=== PATIENT | female | born 1940 | race Caucasian/White ===

== ENCOUNTER → 2017-05-20 | Outpatient (CLI) | payer MEDICARE, OTHER ==
[~2017-05-20] MED LIST: ALBU.083IS INH; ALBU90OI INH; ALBU90OI61 INH; ALLO100 PO; ASPI81CH PO; ASPI81EC PO; AZIT250 PO; BENZ100A PO; CIPR500 PO; DOXY100 PO; GUAI600T33 PO; HYDCHL25 PO; HYDR1TAB94 PO; Inderal40 MG PO; K-Dur20 MEQ PO; LEVFLO500 PO; LOSA50 PO; Lasix40 MG PO; MICARDIS; Norco 5-325 Ta1 EACH PO; OMEP20ER PO; PHENA200 PO; PRED10 PO; PRED20 PO; PROP10 PO; Prednisone20 MG PO; SIMV10 PO; SPIR25 PO; TRAM50 PO; TROSPIUM CHLORI20 MG PO; Ultram50 MG PO; [UNRECOGNIZED DRUG - OTHER]
== END | disposition home or self-care (01) ==
LOC: PLD 08:36 → LAB SHORT 08:36
DX: D48.5 Neoplasm of uncertain behavior of skin (principal)
CPT/HCPCS: 88305

== ENCOUNTER → 2017-05-25 | Outpatient (CLI) | payer MEDICARE, OTHER ==
[2017-05-25 14:42] LABS: BASOPHILS ABSOLUTE AUTO 0.03 K/mm3 (0.00-0.23); BASOPHILS PERCENT AUTO 0 % (0-2); EOSINOPHILS ABSOLUTE AUTO 0.15 K/mm3 (0.00-0.68); EOSINOPHILS PERCENT AUTO 2 % (0-6); Hematocrit 40.8 % (33.0-51.0); Hemoglobin 13.7 g/dL (11.5-16.0); IMMATURE GRAN ABSOLUTE AUTO 0.05 K/mm3 (0.00-0.10); IMMATURE GRAN PERCENT AUTO 1 % (0-1); LYMPHOCYTES ABSOLUTE AUTO 2.15 K/mm3 (0.84-5.20); LYMPHOCYTES PERCENT AUTO 28 % (21-46); MONOCYTES ABSOLUTE AUTO 0.69 K/mm3 (0.16-1.47); MONOCYTES PERCENT AUTO 9 % (4-13); Mean Corpuscular HGB 29.1 pg (26.0-34.0); Mean Corpuscular HGB Conc 33.6 g/dL (31.5-36.5); Mean Corpuscular Volume 87 fL (80-100); Mean Platelet Volume 11.8 fL (9.1-12.4); NEUTROPHILS ABSOLUTE AUTO 4.71 K/mm3 (1.96-9.15); NEUTROPHILS PERCENT AUTO 61 % (41-73); Platelet Count 152 K/mm3 (150-400); RDW Coefficient Variation 13.5 % (11.7-14.2); RDW Standard Deviation 42.1 fL (35.1-46.3); Red Blood Cell Count 4.71 M/mm3 (3.80-5.20); White Blood Cell Count 7.78 K/mm3 (4.00-11.30)
[2017-05-25 14:54] LABS: Alanine Aminotransfer (ALT/SGP 33 U/L (12-78); Albumin, Blood 3.5 g/dL (3.4-5.0); Albumin/Globulin Ratio 0.9 (0.8-1.8); Alk Phos 86 U/L (40-126); Anion Gap 6 mmol/L (6-16); Aspartate Aminotrans (AST/SGOT 25 U/L (12-37); Bilirubin, Total 0.7 mg/dL (0.1-1.0); Blood Urea Nitrogen 22 mg/dL (8-24); CO2, Blood 31 mmol/L (21-32); Calcium, Blood 9.5 mg/dL (8.5-10.1); Chloride, Blood 103 mmol/L (98-108); Creatinine, Blood 0.88 mg/dL (0.40-1.00); Glomerular Filtration Rate >60 (60-); Glucose, Blood 88 mg/dL (70-99); Potassium, Blood 4.3 mmol/L (3.5-5.5); Sodium, Blood 140 mmol/L (136-145); Total Protein, Blood 7.5 g/dL (6.4-8.2)
== END ==
LOC: LAB SHORT 14:38
PROVIDERS: Physician Assistant
DX: R00.2 Palpitations (principal)
CPT/HCPCS: 80053; 85025

== ENCOUNTER → 2017-06-03 | Outpatient (CLI) | payer MEDICARE, OTHER | LOC: PLD 13:40 → LAB SHORT 13:40 | DX: C44.41 Basal cell carcinoma of skin of scalp and neck (principal) | CPT/HCPCS: 88305 ==

== ENCOUNTER → 2017-07-29 | Outpatient (CLI) | payer MEDICARE, OTHER ==
[~2017-07-29] MED LIST changes: -SPIR25 PO
== END | disposition home or self-care (01) ==
LOC: LAB SHORT 11:19 → LAB EV 11:19
DX: M79.672 Pain in left foot (principal)
CPT/HCPCS: 84550

== ENCOUNTER 2018-02-03 10:49 | Day surgery (SDC) | payer MEDICARE, OTHER ==
[~2018-02-03] VITALS: Ht 157.5 cm; Wt 109.4 kg
[2018-02-03] MEDS ORDERED: SPIR25 PO (11:24)
== END 2018-02-03 13:08 | disposition home or self-care (01) ==
LOC: ORSCSDS 10:49
PROVIDERS: Internal Medicine Gastroenterology
PROC: 0DB68ZX Excision of Stomach, Via Natural or Artificial Opening Endoscopic, Diagnostic (ICD-10-PCS; principal; 2018-02-03 12:00)
PROC: 0DB58ZX Excision of Esophagus, Via Natural or Artificial Opening Endoscopic, Diagnostic (ICD-10-PCS; principal; 2018-02-03 12:00)
PROC: 0DBH8ZX Excision of Cecum, Via Natural or Artificial Opening Endoscopic, Diagnostic (ICD-10-PCS; principal; 2018-02-03 12:00)
DX: K21.9 Gastro-esophageal reflux disease without esophagitis (principal); K29.70 Gastritis, unspecified, without bleeding; K31.7 Polyp of stomach and duodenum; Z12.11 Encounter for screening for malignant neoplasm of colon; Z86.010 Personal history of colon polyps; D12.0 Benign neoplasm of cecum; K57.30 Diverticulosis of large intestine without perforation or abscess without bleeding; K64.8 Other hemorrhoids; J44.9 Chronic obstructive pulmonary disease, unspecified; G47.33 Obstructive sleep apnea (adult) (pediatric); Z87.891 Personal history of nicotine dependence; E66.01 Morbid (severe) obesity due to excess calories; Z68.41 Body mass index [BMI] 40.0-44.9, adult; I12.9 Hypertensive chronic kidney disease with stage 1 through stage 4 chronic kidney disease, or unspecified chronic kidney disease; N18.9 Chronic kidney disease, unspecified; Z79.899 Other long term (current) drug therapy; Z79.82 Long term (current) use of aspirin
CPT/HCPCS: 88305; 88342; J2250; J7120

== ENCOUNTER → 2018-05-08 | Outpatient (CLI) | payer MEDICARE, OTHER ==
[~2018-05-08] MED LIST changes: +SPIR25 PO
== END ==
LOC: LAB SHORT 17:21 → LAB EV 17:21
DX: N39.0 Urinary tract infection, site not specified (principal)
CPT/HCPCS: 87077; 87086; 87186

== ENCOUNTER → 2018-07-12 | Outpatient (CLI) | payer MEDICARE, OTHER | LOC: LAB SHORT 19:16 → LAB EV 19:16 | DX: N39.0 Urinary tract infection, site not specified (principal) | CPT/HCPCS: 87077; 87086; 87186 ==

== ENCOUNTER 2019-02-04 13:03 | Day surgery (SDC) | payer MEDICARE, OTHER ==
[~2019-02-04] VITALS: Ht 157.5 cm; Wt 109.8 kg
[~2019-02-04 13:03] MED LIST changes: +AMLO10 PO; +AMLO5 PO; +ASPI325 PO; +COLLAGEN; +FURO40 PO; +Flonase 0.05% N16 GM; +LEVO-T100 MCG PO; +LEVSOD100 PO; +OMEPRAZOLE20 MG PO; +PROP80ER; +TERB250 PO; +VITAMIN D35000 UNIT PO; +VITAMIN D5000 UNIT PO; +Zantac150 MG PO
[2019-02-04] MEDS ORDERED: ACET325 PO (13:57)
== END 2019-02-04 16:20 | disposition home or self-care (01) ==
LOC: ORSCSDS 13:03
PROVIDERS: Podiatrist Foot & Ankle Surgery
PROC: 0QBP0ZZ Excision of Left Metatarsal, Open Approach (ICD-10-PCS; principal; 2019-02-04 14:30)
PROC: 0QBM0ZZ Excision of Left Tarsal, Open Approach (ICD-10-PCS; principal; 2019-02-04 14:30)
DX: M12.872 Other specific arthropathies, not elsewhere classified, left ankle and foot (principal); Z95.0 Presence of cardiac pacemaker; G47.33 Obstructive sleep apnea (adult) (pediatric); E03.9 Hypothyroidism, unspecified; E66.01 Morbid (severe) obesity due to excess calories; Z68.41 Body mass index [BMI] 40.0-44.9, adult; I10 Essential (primary) hypertension; J44.9 Chronic obstructive pulmonary disease, unspecified; E78.5 Hyperlipidemia, unspecified; Z79.899 Other long term (current) drug therapy; Z79.82 Long term (current) use of aspirin
CPT/HCPCS: J0171; J0690; J2250; J2704; J3010; J7120

== ENCOUNTER → 2019-03-25 | Outpatient (CLI) | payer MEDICARE, OTHER ==
[~2019-03-25] MED LIST changes: +ACET325 PO
== END | disposition home or self-care (01) ==
LOC: LAB SHORT 16:21 → LAB EV 16:21
DX: N39.0 Urinary tract infection, site not specified (principal)
CPT/HCPCS: 87086

== ENCOUNTER 2019-04-08 17:53 | Emergency (ER) | payer MEDICARE, OTHER ==
[~2019-04-08] VITALS: Ht 157.5 cm; Wt 109.8 kg
[~2019-04-08 17:53] MED LIST changes: -PROP80ER; +PROP80ER PO
[2019-04-08 18:48] LABS: BASOPHILS ABSOLUTE AUTO 0.02 K/mm3 (0.00-0.23); BASOPHILS PERCENT AUTO 0 % (0-2); EOSINOPHILS ABSOLUTE AUTO 0.24 K/mm3 (0.00-0.68); EOSINOPHILS PERCENT AUTO 3 % (0-6); Hematocrit 39.9 % (33.0-51.0); IMMATURE GRAN ABSOLUTE AUTO 0.04 K/mm3 (0.00-0.10); IMMATURE GRAN PERCENT AUTO 0 % (0-1); LYMPHOCYTES ABSOLUTE AUTO 2.05 K/mm3 (0.84-5.20); LYMPHOCYTES PERCENT AUTO 23 % (21-46); MONOCYTES ABSOLUTE AUTO 0.77 K/mm3 (0.16-1.47); MONOCYTES PERCENT AUTO 9 % (4-13); Mean Corpuscular HGB 28.4 pg (26.0-34.0); Mean Corpuscular HGB Conc 32.6 g/dL (31.5-36.5); Mean Corpuscular Volume 87 fL (80-100); Mean Platelet Volume 11.7 fL (9.1-12.4); NEUTROPHILS ABSOLUTE AUTO 5.85 K/mm3 (1.96-9.15); NEUTROPHILS PERCENT AUTO 65 % (41-73); Platelet Count 177 K/mm3 (150-400); RDW Coefficient Variation 13.7 % (11.7-14.2); RDW Standard Deviation 43.8 fL (35.1-46.3); Red Blood Cell Count 4.57 M/mm3 (3.80-5.20); White Blood Cell Count 8.97 K/mm3 (4.00-11.30)
[2019-04-08 19:13] LABS: Alanine Aminotransfer (ALT/SGP 30 U/L (12-78); Albumin, Blood 3.6 g/dL (3.4-5.0); Albumin/Globulin Ratio 0.8 (0.8-1.8); Alk Phos 95 U/L (50-136); Anion Gap 4 mmol/L (6-16); Aspartate Aminotrans (AST/SGOT 21 U/L (12-37); Bilirubin, Total 0.5 mg/dL (0.1-1.0); Blood Urea Nitrogen 27 mg/dL (8-24); Bun/Creatinine Ratio 36.2 (12.0-20.0); CO2, Blood 29 mmol/L (21-32); Calcium, Blood 9.6 mg/dL (8.5-10.1); Chloride, Blood 104 mmol/L (98-108); Creatinine, Blood 0.75 mg/dL (0.40-1.00); Globulin, Blood 4.3 g/dL (2.2-4.0); Glomerular Filtration Rate >60 (60-); Glucose, Blood 81 mg/dL (70-99); Sodium, Blood 137 mmol/L (136-145); Total Protein, Blood 7.9 g/dL (6.4-8.2)
[2019-04-08 20:12] LABS: Source, Urine Clean Catch
[2019-04-08 20:15] LABS: Bilirubin, Urine Neg (Neg); Blood, Urine Neg (Neg); Glucose Qualitative, Urine Neg (Neg); Ketones, Urine Neg (Neg); Leukocyte Esterase, Urine 3+ (Neg); Nitrite, Urine Neg (Neg); Protein, Urine Neg (Neg); Urobilinogen, Urine NORM (Normal)
[2019-04-08 20:17] LABS: Appearance, Urine Clear (Clear); Color, Urine Yellow (P-Yellow)
[2019-04-08 20:21] LABS: Bacteria Rare /hpf; Red Blood Cells, Urine Not Seen /hpf (0-2); Squamous Epithelial Cells Few /hpf (Few); White Blood Cells, Urine 50-100 /hpf (0-5)
[2019-04-08] MEDS ORDERED: Norco 5-325 Ta1 EACH PO (21:12)
[2019-04-08] MEDS ORDERED: CEPH500 PO (21:12)
[2019-04-08] MEDS ORDERED: Bactrim Ds Tab1 EACH PO (21:12)
== END 2019-04-08 21:46 | disposition home or self-care (01) ==
LOC: ER 17:53
PROVIDERS: Physician Assistant
DX: N30.00 Acute cystitis without hematuria (principal); N75.0 Cyst of Bartholin's gland; J44.9 Chronic obstructive pulmonary disease, unspecified; M10.9 Gout, unspecified; I10 Essential (primary) hypertension; Z88.6 Allergy status to analgesic agent; Z88.5 Allergy status to narcotic agent; Z91.040 Latex allergy status; Z79.82 Long term (current) use of aspirin
CPT/HCPCS: 74176; 80053; 81001; 83690; 85025; 87077; 87086; 87186; 99284-25; A9270-GY

== ENCOUNTER → 2019-04-12 | Outpatient (CLI) | payer MEDICARE, OTHER ==
[~2019-04-12] MED LIST changes: +Bactrim Ds Tab1 EACH PO; +CEPH500 PO
== END | disposition home or self-care (01) ==
LOC: LAB EV 18:25 → LAB SHORT 18:25
DX: N39.0 Urinary tract infection, site not specified (principal)
CPT/HCPCS: 87086

== ENCOUNTER → 2020-06-12 | Outpatient (CLI) | payer MEDICARE, OTHER ==
[~2020-06-12] MED LIST changes: +FOSAMAX70 MG PO
== END | disposition home or self-care (01) ==
LOC: LAB SHORT 14:15 → LAB 14:15
DX: L28.2 Other prurigo (principal)
CPT/HCPCS: 87070; 87106; 87205

== ENCOUNTER 2020-07-02 16:01 | Emergency (ER) | payer MEDICARE, OTHER ==
[~2020-07-02] VITALS: Ht 157.5 cm; Wt 107.5 kg
[~2020-07-02 16:01] MED LIST changes: -FOSAMAX70 MG PO
[2020-07-02 17:30] LABS: BASOPHILS ABSOLUTE AUTO 0.03 K/mm3 (0.00-0.23); BASOPHILS PERCENT AUTO 0 % (0-2); EOSINOPHILS ABSOLUTE AUTO 0.44 K/mm3 (0.00-0.68); EOSINOPHILS PERCENT AUTO 6 % (0-6); Hematocrit 42.8 % (33.0-51.0); IMMATURE GRAN ABSOLUTE AUTO 0.05 K/mm3 (0.00-0.10); IMMATURE GRAN PERCENT AUTO 1 % (0-1); LYMPHOCYTES ABSOLUTE AUTO 1.95 K/mm3 (0.84-5.20); LYMPHOCYTES PERCENT AUTO 26 % (21-46); MONOCYTES ABSOLUTE AUTO 0.51 K/mm3 (0.16-1.47); MONOCYTES PERCENT AUTO 7 % (4-13); Mean Corpuscular HGB 27.9 pg (26.0-34.0); Mean Corpuscular HGB Conc 32.7 g/dL (31.5-36.5); Mean Corpuscular Volume 85 fL (80-100); Mean Platelet Volume 11.2 fL (9.1-12.4); NEUTROPHILS PERCENT AUTO 60 % (41-73); Platelet Count 173 K/mm3 (150-400); RDW Standard Deviation 43.1 fL (35.1-46.3); Red Blood Cell Count 5.02 M/mm3 (3.80-5.20); White Blood Cell Count 7.48 K/mm3 (4.00-11.30)
[2020-07-02 17:58] LABS: Alanine Aminotransfer (ALT/SGP 23 U/L (12-78); Albumin, Blood 3.7 g/dL (3.4-5.0); Albumin/Globulin Ratio 0.9 (0.8-1.8); Alk Phos 86 U/L (50-136); Anion Gap 4 mmol/L (6-16); Aspartate Aminotrans (AST/SGOT 20 U/L (12-37); Bilirubin, Total 1.1 mg/dL (0.1-1.0); Blood Urea Nitrogen 23 mg/dL (8-24); CO2, Blood 29 mmol/L (21-32); Calcium, Blood 9.1 mg/dL (8.5-10.1); Chloride, Blood 104 mmol/L (98-108); Creatinine, Blood 0.82 mg/dL (0.40-1.00); Globulin, Blood 4.1 g/dL (2.2-4.0); Glomerular Filtration Rate >60 (60-); Glucose, Blood 98 mg/dL (70-99); Potassium, Blood 4.4 mmol/L (3.5-5.5); Sodium, Blood 137 mmol/L (136-145); Total Protein, Blood 7.8 g/dL (6.4-8.2)
[2020-07-02 19:54] LABS: Source, Urine Clean Catch
[2020-07-02 20:00] LABS: Bilirubin, Urine Neg (Neg); Blood, Urine Neg (Neg); Glucose Qualitative, Urine Neg (Neg); Ketones, Urine Neg (Neg); Leukocyte Esterase, Urine 1+ (Neg); Nitrite, Urine Neg (Neg); Protein, Urine Neg (Neg); Specific Gravity, Urine 1.015 (1.003-1.022); Urobilinogen, Urine NORM (Normal)
[2020-07-02 20:13] LABS: U Amphetamine Screen Not Detected; U Barbituate Screen Not Detected; U Benzodiazapine Screen Not Detected; U Buprenorphine Screen Not Detected; U Cannabinoids Screen Not Detected; U Cocaine Screen Not Detected; U Methadone Screen Not Detected; U Methamphetamine Screen Not Detected; U Opiates Screen Not Detected; U Oxycodone Screen Not Detected; U Phencyclidine Screen Not Detected; U Propoxyphene Screen Not Detected
[2020-07-02 20:20] LABS: Appearance, Urine Clear (Clear); Color, Urine Yellow (P-Yellow)
[2020-07-02 20:27] LABS: Bacteria Many /hpf; Red Blood Cells, Urine 0-2 /hpf (0-2); Squamous Epithelial Cells Mod /hpf (Few)
[2020-07-02] MEDS ORDERED: FOSAMAX70 MG PO (20:54)
[2020-07-03 00:06] LABS: CPK Creatine Kinase 62 U/L (26-193)
[2020-07-03 00:07] LABS: Troponin I <0.015 ng/mL (0.000-0.040)
== END 2020-07-03 00:35 | disposition home or self-care (01) ==
LOC: ER 16:01
PROVIDERS: Emergency Medicine; Physician Assistant
DX: M79.10 Myalgia, unspecified site (principal); R53.1 Weakness; Z88.5 Allergy status to narcotic agent; Z91.040 Latex allergy status; Z79.82 Long term (current) use of aspirin; Z79.899 Other long term (current) drug therapy; Z87.891 Personal history of nicotine dependence; M79.605 Pain in left leg; M79.604 Pain in right leg
CPT/HCPCS: 36415; 70450; 80053; 81001; 82550; 84484; 85025; 87086; 93970; 99285-25

== ENCOUNTER → 2020-09-14 | Outpatient (CLI) | payer MEDICARE, OTHER ==
[~2020-09-14] MED LIST changes: +FOSAMAX70 MG PO
== END | disposition home or self-care (01) ==
LOC: LAB SHORT 13:58 → LAB 13:58
DX: N90.89 Other specified noninflammatory disorders of vulva and perineum (principal)
CPT/HCPCS: 88304

== ENCOUNTER → 2020-09-29 | Outpatient (CLI) | payer MEDICARE, OTHER | LOC: LAB 15:09 → LAB SHORT 15:09 | DX: N39.0 Urinary tract infection, site not specified (principal); Z88.6 Allergy status to analgesic agent; Z88.5 Allergy status to narcotic agent; Z91.040 Latex allergy status | CPT/HCPCS: 87077; 87086; 87186 ==

== ENCOUNTER → 2020-11-21 | Outpatient (CLI) | payer MEDICARE | END | disposition home or self-care (01) | LOC: LAB SHORT 10:46 | DX: L57.0 Actinic keratosis (principal); L72.0 Epidermal cyst | CPT/HCPCS: 88304; 88305 ==

== ENCOUNTER → 2021-04-18 | Outpatient (CLI) | payer MEDICARE, OTHER | END | disposition home or self-care (01) | LOC: LAB SHORT 18:42 | DX: N39.0 Urinary tract infection, site not specified (principal) | CPT/HCPCS: 87077; 87086; 87186 ==

== ENCOUNTER → 2021-08-16 | Outpatient (CLI) | payer MEDICARE, OTHER ==
[2021-08-16 19:12] LABS: BASOPHILS ABSOLUTE AUTO 0.01 K/mm3 (0.00-0.23); BASOPHILS PERCENT AUTO 0 % (0-2); EOSINOPHILS ABSOLUTE AUTO 0.26 K/mm3 (0.00-0.68); EOSINOPHILS PERCENT AUTO 4 % (0-6); Hematocrit 39.8 % (33.0-51.0); Hemoglobin 13.3 g/dL (11.5-16.0); IMMATURE GRAN ABSOLUTE AUTO 0.02 K/mm3 (0.00-0.10); IMMATURE GRAN PERCENT AUTO 0 % (0-1); LYMPHOCYTES ABSOLUTE AUTO 1.96 K/mm3 (0.84-5.20); LYMPHOCYTES PERCENT AUTO 31 % (21-46); MONOCYTES ABSOLUTE AUTO 0.42 K/mm3 (0.16-1.47); MONOCYTES PERCENT AUTO 7 % (4-13); Mean Corpuscular HGB 28.7 pg (26.0-34.0); Mean Corpuscular HGB Conc 33.4 g/dL (31.5-36.5); Mean Corpuscular Volume 86 fL (80-100); Mean Platelet Volume 11.5 fL (9.1-12.4); NEUTROPHILS ABSOLUTE AUTO 3.71 K/mm3 (1.96-9.15); NEUTROPHILS PERCENT AUTO 58 % (41-73); Platelet Count 153 K/mm3 (150-400); RDW Standard Deviation 43.2 fL (35.1-46.3); Red Blood Cell Count 4.64 M/mm3 (3.80-5.20); White Blood Cell Count 6.38 K/mm3 (4.00-11.30)
[2021-08-16 19:29] LABS: Bun/Creatinine Ratio 23.7 (12.0-20.0); Calcium, Blood 9.3 mg/dL (8.5-10.1); Creatinine, Blood 0.97 mg/dL (0.40-1.00); Potassium, Blood 3.7 mmol/L (3.5-5.5); Thyroid Stimulating Hormone 4.183 uIU/mL (0.360-4.800)
== END | disposition home or self-care (01) ==
LOC: LAB SHORT 19:07
PROVIDERS: Physician Assistant Surgical
DX: R53.83 Other fatigue (principal)
CPT/HCPCS: 80048; 84443; 85025

== ENCOUNTER → 2021-12-03 | Outpatient (CLI) | payer MEDICARE, OTHER | END | disposition home or self-care (01) | LOC: LAB SHORT 15:08 → PLD 15:08 | DX: D48.5 Neoplasm of uncertain behavior of skin (principal) | CPT/HCPCS: 88305 ==

== ENCOUNTER → 2024-06-28 | Outpatient (CLI) | payer MEDICARE | END | disposition home or self-care (01) | LOC: LAB SHORT 18:14 → LAB 18:14 | DX: N39.0 Urinary tract infection, site not specified (principal) | CPT/HCPCS: 87077; 87086; 87186 ==

== ENCOUNTER → 2025-02-18 | Outpatient (CLI) | payer MEDICARE | LOC: LAB 16:48 → LAB SHORT 16:48 | DX: N39.0 Urinary tract infection, site not specified (principal); R31.9 Hematuria, unspecified | CPT/HCPCS: 87077; 87086; 87186 ==

== ENCOUNTER 2025-03-07 17:39 | Emergency (ER) | payer MEDICARE | END 2025-03-07 23:52 | disposition home or self-care (01) | LOC: ER 17:39 | DX: S06.0X0A Concussion without loss of consciousness, initial encounter (principal); M54.2 Cervicalgia; L03.116 Cellulitis of left lower limb; T50.2X6A Underdosing of carbonic-anhydrase inhibitors, benzothiadiazides and other diuretics, initial encounter; I10 Essential (primary) hypertension; J44.9 Chronic obstructive pulmonary disease, unspecified; I48.91 Unspecified atrial fibrillation; Z91.148 Patient's other noncompliance with medication regimen for other reason; Z95.0 Presence of cardiac pacemaker; Z87.891 Personal history of nicotine dependence; Z88.5 Allergy status to narcotic agent; Z91.040 Latex allergy status; Z79.82 Long term (current) use of aspirin; Z79.01 Long term (current) use of anticoagulants; Z79.890 Hormone replacement therapy; Z79.899 Other long term (current) drug therapy; W19.XXXA Unspecified fall, initial encounter ==

== ENCOUNTER 2025-03-27 14:35 | Inpatient (IN) | payer MEDICARE ==
[~2025-03-27] VITALS: Ht 162.6 cm; Wt 103.0 kg
[~2025-03-27 14:35] MED LIST changes: -AMLO10 PO
[2025-03-27 15:43] LABS: BASOPHILS ABSOLUTE AUTO 0.04 K/mm3 (0.00-0.23); BASOPHILS PERCENT AUTO 0 % (0-2); EOSINOPHILS ABSOLUTE AUTO 0.00 K/mm3 (0.00-0.68); EOSINOPHILS PERCENT AUTO 0 % (0-6); Hematocrit 43.9 % (33.0-51.0); Hemoglobin 14.5 g/dL (11.5-16.0); IMMATURE GRAN ABSOLUTE AUTO 0.10 K/mm3 (0.00-0.10); IMMATURE GRAN PERCENT AUTO 1 % (0-1); LYMPHOCYTES ABSOLUTE AUTO 1.21 K/mm3 (0.84-5.20); LYMPHOCYTES PERCENT AUTO 7 % (21-46); MONOCYTES ABSOLUTE AUTO 1.07 K/mm3 (0.16-1.47); MONOCYTES PERCENT AUTO 7 % (4-13); Mean Corpuscular HGB Conc 33.0 g/dL (31.5-36.5); Mean Corpuscular Volume 92 fL (80-100); NEUTROPHILS ABSOLUTE AUTO 14.02 K/mm3 (1.96-9.15); NEUTROPHILS PERCENT AUTO 85 % (41-73); NRBC ABSOLUTE 0.00 K/mm3 (0.00-0.02); NRBC Auto 0.0 /100 WBC (0.0-0.2); Platelet Count 132 K/mm3 (150-400); RDW Coefficient Variation 14.6 % (11.7-14.2); RDW Standard Deviation 49.2 fL (35.1-46.3)
[2025-03-27 16:25] LABS: Alanine Aminotransfer (ALT/SGP 36.0 U/L (12-78); Albumin, Blood 3.0 g/dL (3.4-5.0); Albumin/Globulin Ratio 0.7 (0.8-1.8); Anion Gap 10.0 mmol/L (3-11); Aspartate Aminotrans (AST/SGOT 50.0 U/L (12-37); Bilirubin, Total 2.6 mg/dL (0.1-1.0); Blood Urea Nitrogen 25.0 mg/dL (8-24); CO2, Blood 27.0 mmol/L (21-32); Calcium, Blood 9.6 mg/dL (8.5-10.1); Chloride, Blood 99.0 mmol/L (98-108); Creatinine, Blood 1.06 mg/dL (0.40-1.00); Globulin, Blood 4.2 g/dL (2.2-4.0); Glucose, Blood 104.0 mg/dL (70-99); Potassium, Blood 4.5 mmol/L (3.5-5.5); Sodium, Blood 131.0 mmol/L (136-145); Total Protein, Blood 7.2 g/dL (6.4-8.2)
[2025-03-27] MEDS ORDERED: NYSTOP15 GM TOP (17:03)
[2025-03-27] MEDS ORDERED: ISOSORBIDE MONO30 MG PO (17:03)
[2025-03-27] MEDS ORDERED: ELIQUIS5 M3 PO (17:03)
[2025-03-27] MEDS ORDERED: NS 1,000 ML IV SCH ×2 (17:15→18:25)
[2025-03-27] MEDS ORDERED: CefTRIAXone Sodium 2,000 MG in NS 100 ML IV ONE (17:20)
[2025-03-27] MEDS ORDERED: FentaNYL Citrate 50 MCG/ML 2 ML Injection IV ONE ×2 (17:30→22:30)
[2025-03-27] MEDS ORDERED: Vancomycin (Pharmacy Consult) IV PRN (17:45)
[2025-03-27] MEDS ORDERED: Ondansetron HCl 2 MG / ML 2ML Vial IV PRN (18:25)
[2025-03-27] MEDS ORDERED: HYDROcodone 5-APAP 325 TAB PO PRN (18:25)
[2025-03-27] MEDS ORDERED: FLU VACC TS2025(65UP)/MF59C/PF 45 MCG/0.5 ML SYRINGE IM SCH (18:35)
[2025-03-27] MEDS ORDERED: Metoprolol Tartrate 1 MG/ML 5 ML VIAL IV PRN (18:50)
[2025-03-27] MEDS ORDERED: Vancomycin (Pharmacy Consult) IV SCH (19:00)
[2025-03-27 20:43] VITALS: BP 120/65
[2025-03-27] MEDS ORDERED: Lactobacil 2-S.Thermo-Bifido 1 1 Cap PO SCH (21:00)
[2025-03-27] MEDS ORDERED: Morphine Sulfate 4 MG/1 ML Injection IV PRN (22:30)
[2025-03-27 23:30] VITALS: BP 116/66
--- NOTE | 2025-03-27 23:44 | NUR ---
PROVIDER CONTACTED PT C/O CHEST PAIN REPORTED "WORST PAIN I HAVE EVER HAD" POINTED TO LEFT BREAST TO LATERAL 4-5 RIBS NON RADIATING,DENIES BACK AND JAW PAIN, PT GIVEN METROPOLOL APIXIBAN AND NORCO EVENING MEDICATIONS PRIOR,PROVIDER ORDERED TROPONIN LABS Q1HR X2 , FENTYNAL 50 MCG X1, EKG SHOWED AFIB @103, PT STATES "PAIN COMES AND GOES", VSS, PT PLACED ON TELE, TROPONIN LAB 13 , CHART REVIEW SHOWS PT AFIB W RVR IN ER PRIOR TO ADMISSION.
[2025-03-28] VITALS (7 sets, daily range): BP systolic 103–143; BP diastolic 60–96
--- NOTE | 2025-03-28 02:04 | NUR ---
CALLED HOSPITALIST AND RECEIVED ORDERS TO SET UP CPAP FOR PT USING HOSPITAL EQUIPMENT.
[2025-03-28 05:48] LABS: BASOPHILS ABSOLUTE AUTO 0.02 K/mm3 (0.00-0.23); BASOPHILS PERCENT AUTO 0 % (0-2); EOSINOPHILS ABSOLUTE AUTO 0.02 K/mm3 (0.00-0.68); EOSINOPHILS PERCENT AUTO 0 % (0-6); Hematocrit 39.1 % (33.0-51.0); Hemoglobin 12.9 g/dL (11.5-16.0); IMMATURE GRAN ABSOLUTE AUTO 0.04 K/mm3 (0.00-0.10); IMMATURE GRAN PERCENT AUTO 0 % (0-1); LYMPHOCYTES ABSOLUTE AUTO 0.84 K/mm3 (0.84-5.20); LYMPHOCYTES PERCENT AUTO 9 % (21-46); MONOCYTES ABSOLUTE AUTO 0.69 K/mm3 (0.16-1.47); MONOCYTES PERCENT AUTO 8 % (4-13); Mean Corpuscular HGB Conc 33.0 g/dL (31.5-36.5); Mean Corpuscular Volume 91 fL (80-100); NEUTROPHILS ABSOLUTE AUTO 7.35 K/mm3 (1.96-9.15); NEUTROPHILS PERCENT AUTO 82 % (41-73); NRBC ABSOLUTE 0.00 K/mm3 (0.00-0.02); NRBC Auto 0.0 /100 WBC (0.0-0.2); Platelet Count 115 K/mm3 (150-400); RDW Coefficient Variation 14.6 % (11.7-14.2); RDW Standard Deviation 49.1 fL (35.1-46.3)
[2025-03-28 06:07] LABS: Anion Gap 8.0 mmol/L (3-11); Blood Urea Nitrogen 23.0 mg/dL (8-24); CO2, Blood 27.0 mmol/L (21-32); Calcium, Blood 8.7 mg/dL (8.5-10.1); Chloride, Blood 106.0 mmol/L (98-108); Creatinine, Blood 0.85 mg/dL (0.40-1.00); Glucose, Blood 119.0 mg/dL (70-99); Potassium, Blood 3.9 mmol/L (3.5-5.5); Sodium, Blood 137.0 mmol/L (136-145)
--- NOTE | 2025-03-28 06:38 | NUR ---
SHIFT SUMMARY PT ARRIVED AT APPROXIMATELY 2039 TO ROOM 327. SHE WAS ORIENTED TO HER ROOM AND WAS ABLE TO TRANSFER TO HER BED WITH 1-2 PERSON ASSIST. SHE IS A&OX4. ABLE TO MAKE NEEDS KNOWN. THERE IS REDNESS WITH RED SPOTS TO LLL WITH OUTLINE THAT APPEARS TO BE GETTING SMALLER AFTER FIRST DOSE OF VANCOMYCIN. PT TOLERATED VANCOMYCIN INFUSION WELL W/O COMPLAINT. SHE HAD A RUN OF AFIB W RVR WITH CHEST PAIN. HOSPITALIST WAS CALLED AND DUE TO PT ALLERGY TO MORPHINE, WAS GIVEN FENTANYL AND AFIB W/RVR AND S/S RESOLVED. TROPONIN WAS DRAWN PER ORDERS AND WITHOUT SIGNIFICANCE. PT WAS SET UP WITH RT AND A CPAP MACHINE AND WAS ABLE TO REST COMFORTABLY. HER IS AT BEDSIDE AND HAS STAYED THE NIGHT WITH HER. SHE HAS HAD INTERMITTENT PAIN THAT IS SHOOTING DOWN HER LLL AND WAS MEDICATED PER EMAR. CURRENTLY PT IS SITTING UP IN BED AT LOWEST POSITION WITH CALL LIGHT WITHIN REACH DRINKING COFFEE WITH HER .
[2025-03-28] MEDS ORDERED: Enoxaparin 40 MG/0.4 ML SYR SC SCH (09:00)
[2025-03-28] MEDS ORDERED: VITAMIN D31000 UNI1 PO (14:53)
[2025-03-28] MEDS ORDERED: CefTRIAXone Sodium 1,000 MG in NS 100 ML IV SCH (18:00)
--- NOTE | 2025-03-28 19:43 | NUR ---
SHIFT SUMMARY PT A&OX4. PT ADMITTED DUE TO LLL CELLULITIS. PT REPORTS DECREASE IN SWELLING AND REDNESS FROM PREVIOUS MARKED LEG. PT REPORTS PAIN, PAIN MANAGED PER EMAR. PT REPORTS CHRONIC SOB SOMETIMES, PT HAS CONT PULSE OX ON, SPO2 IS 96%. PT REPORTS PACEMAKER. NIGHT RN REPORTED "LAST NIGHT PT HAD CHEST PAIN," THIS RN ASKED PT IF PT HAS CHEST PAIN. PT REPORTED "HAVE SHARP PAIN 3-4 TIMES IN CHEST AREA BUT MAY BE DUE TO MUSCLE STRAIN." DR. PHILLIPS NOTIFIED ON CHEST PAIN. PT ON TELE, TELE REPORTS PT IN AFIB. NO TELE REPORTS NOTED TODAY. PT HAS MIXED INC. ATTENDS IN PLACE AND CHANGED PRN. THIS RN COMPLETED MED REC. PASSED TO NIGHT RN PT REPORTS "DONT HAVE METOPROLOL." MED ON EMAR, DURING BEDSIDE REPORT PT REPORTED, " AMLODIPINE I DONT TAKE ALWAYS DUE TO MAKES MY LEGS SWELL, I DONT ALWAYS TAKE MY LASIX." I TAKE PT IS A SBA W FWW. PT REPORTS HX OF NEUROPATHY. PT GOT IV ANTIBIOTIC. PT IN BED, BED IN LOWEST POSITION, LOCKED, CALL LIGHT IN REACH. PT GOT NEW IV TODAY DUE TO IV INFILTRATED. PT REPORTED "WANTED IT IN SAME ARM."
--- NOTE | 2025-03-28 23:06 | NUR ---
HOME MED - PROPANOLOL DISCONTINUED PATIENT REPORTS THAT SHE DISCONTINUED HER HOME PROPANOLOL. SHE REPORTS THAT HER STRIKE PLATE ATTACHER ASKED HER TO STOP TAKING IT AT HOME DUE TO BRADYCARDIA.
[2025-03-28] MEDS ORDERED: Miconazole Nitrate 2% 85 GM PWD TOP SCH (23:58)
--- NOTE | 2025-03-29 04:43 | NUR ---
SHIFT SUMMARY ADMITTED FOR LLE CELLULITIS/SEPSIS. FULL CODE. IV ANTIB RX ARE SCHEDULED. SHE IS ON ELIQUIS. TELEMETRY: AFIB @ 77 BPM, PACED W/PVC'S. NS INFUSING ORDERED. SHE IS A&O X4, 1 ASSIST W/FWW. ON RA. REGULAR DIET. CONTINUOUS PULSE OX IS MONITORING. CPAP @ HS. NEW POWERGLIDE IN PLACE THIS SHIFT. ANTIFUNGAL POWDER ORDERED FOR YEASTY RASH IN CREASES. SHE DOES REPORT THAT SHE STOPPED HER HOME PROPANOLOL SOMETIME AFTER SHE LAST PICKED IT UP IN NOVEMBER DUE TO EPISODES OF BRADYCARDIA. SHE DOES ALSO HAVE A HX OF CHF.
[2025-03-29 06:13] LABS: BASOPHILS ABSOLUTE AUTO 0.01 K/mm3 (0.00-0.23); BASOPHILS PERCENT AUTO 0 % (0-2); EOSINOPHILS ABSOLUTE AUTO 0.03 K/mm3 (0.00-0.68); EOSINOPHILS PERCENT AUTO 1 % (0-6); Hematocrit 37.1 % (33.0-51.0); Hemoglobin 11.8 g/dL (11.5-16.0); IMMATURE GRAN ABSOLUTE AUTO 0.02 K/mm3 (0.00-0.10); IMMATURE GRAN PERCENT AUTO 0 % (0-1); LYMPHOCYTES ABSOLUTE AUTO 0.81 K/mm3 (0.84-5.20); LYMPHOCYTES PERCENT AUTO 15 % (21-46); MONOCYTES ABSOLUTE AUTO 0.37 K/mm3 (0.16-1.47); MONOCYTES PERCENT AUTO 7 % (4-13); Mean Corpuscular HGB Conc 31.8 g/dL (31.5-36.5); Mean Corpuscular Volume 92 fL (80-100); NEUTROPHILS ABSOLUTE AUTO 4.04 K/mm3 (1.96-9.15); NEUTROPHILS PERCENT AUTO 77 % (41-73); NRBC ABSOLUTE 0.00 K/mm3 (0.00-0.02); NRBC Auto 0.0 /100 WBC (0.0-0.2); Platelet Count 109 K/mm3 (150-400); RDW Coefficient Variation 14.4 % (11.7-14.2); RDW Standard Deviation 48.6 fL (35.1-46.3)
[2025-03-29 06:32] LABS: Anion Gap 6.0 mmol/L (3-11); Blood Urea Nitrogen 19.0 mg/dL (8-24); CO2, Blood 27.0 mmol/L (21-32); Calcium, Blood 8.2 mg/dL (8.5-10.1); Chloride, Blood 108.0 mmol/L (98-108); Creatinine, Blood 0.73 mg/dL (0.40-1.00); Glucose, Blood 166.0 mg/dL (70-99); Potassium, Blood 3.8 mmol/L (3.5-5.5); Sodium, Blood 137.0 mmol/L (136-145)
[2025-03-29 07:34] VITALS: BP 119/69
[2025-03-29] MEDS ORDERED: Cholecalciferol 1000 Unit Tablet (=25MCG) PO SCH (09:00)
[2025-03-29] MEDS ORDERED: Fluticasone 0.05% Nasal Spray SCH (09:00)
[2025-03-29] MEDS ORDERED: Isosorbide Mononitrate 30 MG TABCR PO SCH (09:00)
[2025-03-29 11:31] VITALS: BP 104/58
[2025-03-29 15:12] VITALS: BP 120/80
--- NOTE | 2025-03-29 16:42 | NUR ---
SHIFT SUMMARY IV FLUIDS STOPPED TODAY. SHOWERED & PANNUS/BREASTS WERE POWDERED AFTERWARDS. PT DID NOT SLEEP WELL OVERNIGHT PER REPORT AND HAS BEEN NAPPING/RESTING IN BED MOST OF THE DAY. REFUSED TO SIT IN RECLINER AFTER SHOWER DUE TO FATIGUE. NO OTHER ACUTE CHANGES IN ASSESSMENT AT THIS TIME. VS REVIEWED. CALL LIGHT IN REACH. SPOUSE AT BEDSIDE.
[2025-03-29 17:49] LABS: Vancomycin, Trough 9.0 ug/mL (5.0-10.0)
[2025-03-29 19:00] VITALS: BP 135/90
--- NOTE | 2025-03-29 19:02 | NUR ---
PHYSICIAN CONTACT-CHEST PAIN PT C/O CHEST PAIN 10/11. PT STATES "I TAKE NITRO AT HOME FOR WHEN I GET CHEST PAIN". AALIYAH CONSUMER [employer] MERCHANDISER NOTIFIED, STATES HE WILL PLACE NITRO ORDER. VS REVIEWED & REPEATED TO RUDOLPH FISCHER.
[2025-03-29] MEDS ORDERED: DEXTROMETHORPHAN/BENZOCAINE 1 EACH LOZENGE MT PRN (22:20)
[2025-03-30] VITALS (8 sets, daily range): BP systolic 121–159; BP diastolic 76–98
[2025-03-30 05:20] LABS: BASOPHILS ABSOLUTE AUTO 0.01 K/mm3 (0.00-0.23); BASOPHILS PERCENT AUTO 0 % (0-2); EOSINOPHILS ABSOLUTE AUTO 0.05 K/mm3 (0.00-0.68); EOSINOPHILS PERCENT AUTO 1 % (0-6); Hematocrit 43.0 % (33.0-51.0); Hemoglobin 14.1 g/dL (11.5-16.0); IMMATURE GRAN ABSOLUTE AUTO 0.05 K/mm3 (0.00-0.10); IMMATURE GRAN PERCENT AUTO 1 % (0-1); LYMPHOCYTES ABSOLUTE AUTO 1.53 K/mm3 (0.84-5.20); LYMPHOCYTES PERCENT AUTO 22 % (21-46); MONOCYTES ABSOLUTE AUTO 0.46 K/mm3 (0.16-1.47); MONOCYTES PERCENT AUTO 7 % (4-13); Mean Corpuscular HGB Conc 32.8 g/dL (31.5-36.5); Mean Corpuscular Volume 91 fL (80-100); NEUTROPHILS ABSOLUTE AUTO 4.73 K/mm3 (1.96-9.15); NEUTROPHILS PERCENT AUTO 69 % (41-73); NRBC ABSOLUTE 0.00 K/mm3 (0.00-0.02); NRBC Auto 0.0 /100 WBC (0.0-0.2); Platelet Count 163 K/mm3 (150-400); RDW Coefficient Variation 14.1 % (11.7-14.2); RDW Standard Deviation 47.3 fL (35.1-46.3)
[2025-03-30 05:41] LABS: Anion Gap 8.0 mmol/L (3-11); Blood Urea Nitrogen 24.0 mg/dL (8-24); CO2, Blood 30.0 mmol/L (21-32); Calcium, Blood 9.4 mg/dL (8.5-10.1); Chloride, Blood 103.0 mmol/L (98-108); Creatinine, Blood 0.83 mg/dL (0.40-1.00); Glucose, Blood 107.0 mg/dL (70-99); Potassium, Blood 4.3 mmol/L (3.5-5.5); Sodium, Blood 137.0 mmol/L (136-145)
--- NOTE | 2025-03-30 05:42 | NUR ---
SHIFT SUMMARY ADMITTED FOR LLE CELLULITIS. FULL CODE. IV ANTIB RX ARE SCHEDULED. POWERGLIDE IN LUE. TELEMETRY: AFIB @ 97 BPM, V-PACED W/PVC'S. REGULAR DIET. ON RA DURING THE DAY, CPAP @ HS. SHE IS ON ELIQUIS. SHE IS A&O X4, BUT I NOTE PERIODS OF ANXIETY REGARDING HER ILLNESS/S. SHE AND HER @ HER BEDSIDE ARE ABLE TO MAKE THEIR NEEDS KNOWN, CALLING FREQUENTLY FOR CARE. HX: AFIB. I HAVE NO NEW CONCERNS THIS SHIFT.
[2025-03-30] MEDS ORDERED: Docusate Sodium/Senna 1 Tab PO SCH (11:00)
[2025-03-30] MEDS ORDERED: Polyethylene Glycol 3350 17 gm PO SCH (11:00)
[2025-03-30] MEDS ORDERED: NS 250 ML IV PRN (16:10)
--- NOTE | 2025-03-30 17:21 | NUR ---
SHIFT SUMMARY PT AOX4, FAMILY AT THE BS ALL SHIFT. MEDICATED FOR PAIN AND NAUSEA PER THE EMAR. SBA TO THE BR, REPOSITIONS SELF IN BED. CALLS AND MAKES HER NEEDS KNOWN. EVENTS PER TELE, SEE STRIPS. MEDICATED PER THE EMAR WITH SCHEDULED MEDICATIONS. PT'S HR INCREASES WITH AMBULATION AT TIMES TO THE BR. CALL LIGHT WITHIN REACH, BED LOCKED AND IN THE LOWEST POSITION. WILL REPORT TO ONCOMING NURSE.
[2025-03-30] MEDS ORDERED: LYRICA PO (18:14)
[2025-03-31] VITALS (7 sets, daily range): BP systolic 108–147; BP diastolic 65–101
--- NOTE | 2025-03-31 05:42 | NUR ---
SHIFT SUMMARY PT C/O LEFT SIDED CHEST PRESSURE 5/10 AT START OF SHIFT- NO CHANGES IN HEART RHTHYM PRE [employer] EXPORT LOGISTICS MANAGER. PT MEDICATED WITH SL NTG X2 PER ORDER WITH RELIEF OF CHEST PRESSURE. PT MEDICATED FOR LEFT LEG PAIN WITH NORCO PER EMAR. LEFT LEG REMAINS RED AND SWOLLEN, BUT APPEARS IMPROVED FROM OUTLINED AREA. PT OOB TO BATHROOM WITH FWW AND SBA. HEART RATE INCREASES TO 130'S WITH ACTIVITY, BUT MOSTLY AFIB 90-100'S. PT ON RA WHILE AWAKE AND CPAP WHILE SLEEPING. CONTINUOUS PULSE OX IN PLACE. PT'S AT BEDSIDE THROUGHOUT THE SHIFT. PT SLEPT INTERMITTENTLY DURING THE NIGHT.
[2025-03-31] MEDS ORDERED: Ketorolac Tromethamine 15mg Vial IV PRN (17:45)
--- NOTE | 2025-03-31 18:31 | NUR ---
SHIFT SUMMARY: PT A&Ox4. ON TELE, SBA WITH FWW, IV ANTIBIOTICS FOR LLE CELLILITIS. POWERGLIDE IN LUE. REGULAR DIET. RA BASELINE DURING THE DAY. USES CPAP AT NIGHT. AT BEDSIDE AND CALLS WHEN APPROPRIATELY. CALL LIGHT IN REACH. BED AT LOWEST POSITION. NO NEW CONCERNS AT THIS TIME.
[2025-04-01 04:12] VITALS: BP 124/74
--- NOTE | 2025-04-01 05:15 | NUR ---
SHIFT SUMMARY PT C/O INCREASED PAIN AND REDNESS TO LLE. ENCOURAGED PT TO KEEP LLE ELEVATED ON PILLOW. MEDICATED FOR PAIN WITH NORCO AND TORADOL PER EMAR. THIS EARLY AM PT STATES PAIN AND REDNESS MUCH IMPROVED. PT OOB TO BATHROOM WITH SBA AND FWW. PT ON TELE, SHOWING AFIB WITH INCREASED HEART RATE DURING ACTIVITY, BUT NOT SUSTAINING WHEN RESTING IN BED. SLEPT INTERMITTENTLY DURING THE NIGHT. AT BEDSIDE.
[2025-04-01 07:24] VITALS: BP 133/71
[2025-04-01 11:24] VITALS: BP 114/82
[2025-04-01 15:06] VITALS: BP 110/72
[2025-04-01 17:30] LABS: Creatinine, Blood 0.94 mg/dL (0.40-1.00); Vancomycin, Trough 12.4 ug/mL (5.0-10.0)
--- NOTE | 2025-04-01 17:44 | NUR ---
SHIFT SUMMARY PT IS A/OX4. SBA WITH FWW. NO ACUTE CHANGES THROUGHOUT THIS SHIFT. PT REPORTS PAIN TO LLE, MEDICATED WITH NORCO PER JUL. ON RA, SATS >92%. USING CPAP WHILE ASLEEP. FAMILY AT BEDSIDE THROUGHOUT THIS SHIFT. PT IS PLEASANT AND COOPERATIVE WITH CARE AND CALLS APPROPRIATELY USING THE CALL LIGHT.
[2025-04-01 19:30] VITALS: BP 118/77
[2025-04-02 00:03] VITALS: BP 112/82
[2025-04-02 04:07] VITALS: BP 134/86
--- NOTE | 2025-04-02 06:15 | NUR ---
SHIFT SUMMARY PT WITH IMPROVED PAIN, SWELLING, AND REDNESS TO LLE. MEDICATED FOR PAIN WITH TORADOL X1 PER EMAR. PT OOB WITH FWW AND SBA. TELE WITH AFIB, BETTER RATE CONTROL THIS SHIFT. AT BEDSIDE THROUGH THE SHIFT. SLEPT INTERMITTENTLY DURING THE NIGHT.
[2025-04-02 08:48] VITALS: BP 125/68
[2025-04-02 11:16] VITALS: BP 118/67
[2025-04-02 14:26] VITALS: BP 121/79
[2025-04-02] MEDS ORDERED: MIRALAX17 GM PO (15:18)
[2025-04-02] MEDS ORDERED: Lopressor 25 mg25 MG PO (15:18)
[2025-04-02] MEDS ORDERED: VISBIOME 112.51 EACH PO (15:19)
[2025-04-02] MEDS ORDERED: CEPH500 PO (15:19)
--- NOTE | 2025-04-02 16:50 | NUR ---
PT DISCHARGED TO HOME. ALL VALUABLES RETURNED AND SENT HOME WITH THE PT. DISCHARGE INSTRUCTIONS PROVIDED AND EDUCATED ON AT TIME OF DISCHARGE.
== END 2025-04-02 18:47 | disposition home or self-care (01) | DRG 872 ==
LOC: ER 14:35 → ERHOLD 18:20 → MEDS 18:20
PROVIDERS: Family Medicine; Nurse Practitioner Acute Care; Student in an Organized Health Care Education/Training Program; ADMIT Student in an Organized Health Care Education/Training Program
DX: A41.9 Sepsis, unspecified organism (principal); L03.115 Cellulitis of right lower limb; E87.1 Hypo-osmolality and hyponatremia; I48.20 Chronic atrial fibrillation, unspecified; Z79.01 Long term (current) use of anticoagulants; I10 Essential (primary) hypertension; E66.01 Morbid (severe) obesity due to excess calories; M10.9 Gout, unspecified; E03.9 Hypothyroidism, unspecified; K21.9 Gastro-esophageal reflux disease without esophagitis; M81.0 Age-related osteoporosis without current pathological fracture; E78.5 Hyperlipidemia, unspecified; G47.33 Obstructive sleep apnea (adult) (pediatric); D69.6 Thrombocytopenia, unspecified; I87.8 Other specified disorders of veins; E80.6 Other disorders of bilirubin metabolism; I83.93 Asymptomatic varicose veins of bilateral lower extremities; Z88.5 Allergy status to narcotic agent; Z91.040 Latex allergy status; Z90.49 Acquired absence of other specified parts of digestive tract; Z90.710 Acquired absence of both cervix and uterus; Z90.722 Acquired absence of ovaries, bilateral; Z90.79 Acquired absence of other genital organ(s); Z68.38 Body mass index [BMI] 38.0-38.9, adult
CPT/HCPCS: 36415; 73701; 80048; 80053; 80202; 82565; 83605; 84484; 85025; 87040; 93005; 93010; 94660; 94762; 96365-59; 96375-59; 99285-25; A9270; J0696; J1885; J2405; J3010; J3373; J7030; J7040; J7050; Q9967